=== PATIENT | female | born 1945 | race Caucasian/White ===

== ENCOUNTER 2024-02-10 09:05 | Inpatient (IN) | payer MEDICARE ==
[~2024-02-10] VITALS: Ht 170.2 cm; Wt 78.5 kg
[2024-02-10 09:10] VITALS: PULSE 89; RESP 16; TEMP 98.4
[2024-02-10 09:38] LABS: BASOPHILS % 0.6 % (0.0-1.0); EOSINOPHILS # (AUTO) 0.1 (0.0-0.4); EOSINOPHILS % 2.9 % (0.0-6.0); HEMATOCRIT 35.6 % (34.2-44.1); LYMPHOCYTES # (AUTO) 0.4 (1.0-3.2); LYMPHOCYTES % 13.4 % (18.0-39.1); MEAN CORPUSCULAR HEMOGLOBIN 30.4 pg (28-32); MEAN CORPUSCULAR HGB CONC 30.9 g/dL (31-35); MEAN CORPUSCULAR VOLUME 98.3 fL (81-99); MONOCYTES # (AUTO) 0.4 (0.2-0.8); MONOCYTES % 12.4 % (4.4-11.3); NEUTROPHILS # (AUTO) 2.2 (2.1-6.9); NEUTROPHILS % 70.7 % (38.7-80.0); PLATELET COUNT 138 x10e3/uL (140-360); RED BLOOD COUNT 3.62 x10e6/uL (3.6-5.1); RED CELL DISTRIBUTION WIDTH 14.8 % (11.7-14.4); WHITE BLOOD COUNT 3.14 x10e3/uL (4.8-10.8)
[2024-02-10 09:59] LABS: ALBUMIN/GLOBULIN RATIO 0.8 (0.8-2.0); ANION GAP 12.4 mmol/L (8-16); BILIRUBIN,TOTAL 1.3 mg/dL (0.2-1.2); CALCIUM 8.7 mg/dL (8.4-10.2); CREATININE, SERUM 0.64 mg/dL (0.57-1.11); MAGNESIUM 1.8 MG/DL (1.3-2.1); POTASSIUM 3.4 mmol/L (3.5-5.1); TOTAL PROTEIN 6.6 g/dL (6.5-8.1)
[2024-02-10 10:04] LABS: INR 1.31; PROTHROMBIN TIME 16.9 seconds (11.9-14.5); TROPONIN I 0.013 ng/mL (0-0.300)
[2024-02-10 10:05] LABS: PARTIAL THROMBOPLASTIN TIME 35.4 seconds (23.8-35.5)
[2024-02-10 10:08] LABS: B-TYPE NATRIURETIC PEPTIDE2 133.1 pg/mL (0-100)
[2024-02-10] MEDS ORDERED: ALBUMIN 25% 12.5GM 50ML 300 ML IV ONE (10:34)
[2024-02-10] MEDS ORDERED: ONDANSETRON HCL INJ 2MG/ML 2ML 2 MG/ML VIAL IV PRN (11:00)
[2024-02-10] MEDS ORDERED: METOPROLOL SUCC25 MG PO (11:33)
[2024-02-10] MEDS ORDERED: XIGDUO XR 5 MG1 EACH PO (11:33)
[2024-02-10] MEDS ORDERED: DONEPEZIL HCL10 MG PO (11:33)
[2024-02-10] MEDS ORDERED: ALENDRONATE SOD70 MG PO (11:33)
[2024-02-10] MEDS ORDERED: LOSARTAN POTASS25 MG PO (11:33)
[2024-02-10] MEDS ORDERED: LIPITOR10 MG PO (11:33)
[2024-02-10] MEDS ORDERED: ACETAMINOPHEN 325 MG TAB PO PRN (12:45)
[2024-02-10] MEDS ORDERED: ALENDRONATE SODIUM 70 MG TAB PO SCH (12:45)
[2024-02-10 14:43] VITALS: BP_SYST 117; BP_SYST 142; BP_DIAS 56; BP_DIAS 68; PULSE 81; PULSE 85; RESP 17; RESP 18; TEMP 97.9; O2SAT 100; O2SAT 98
[2024-02-10 15:22] LABS: BODY FLUID APPEARANCE CLEAR; BODY FLUID COLOR YELLOW; BODY FLUID TYPE PERITONEAL; RBC,BODY FLUID < 2000 cells/uL; WBC,BODY FLUID 121 cells/uL
[2024-02-10 16:44] LABS: LYMPHOCYTES,BODY FLUID 51 %; MONO/MACROPHG,BODY FLUID 31 %; NEUTROPHILS,BODY FLUID 5 %; OTHER CELLS,BODY FLUID 13 %; TOTAL CELLS COUNTED (DIFF) 100
[2024-02-10] MEDS ORDERED: DEXTROSE 50% SYRINGE 50 ML IV PRN (17:30)
[2024-02-10] MEDS ORDERED: ALBUTEROL/IPRATROPIUM 3 ML NEB NEB PRN (18:00)
[2024-02-10 20:00] VITALS: BP 128/57; PULSE 86; RESP 16; TEMP 98.8; O2SAT 99
[2024-02-10] MEDS: SODIUM CHLORIDE 0.9% 250ML 250 ML ONE (20:27)
[2024-02-10] MEDS: INSULIN LISPRO 100 UNIT/1 ML 3ML VIAL SQ SCH (21:00)
[2024-02-10] MEDS: DONEPEZIL HCL 5 MG TAB PO SCH (21:52)
[2024-02-10] MEDS: ATORVASTATIN 10 MG TAB PO SCH (21:52)
[2024-02-11 00:21] VITALS: BP 110/55; PULSE 80; RESP 18; TEMP 98.7; O2SAT 95
[2024-02-11 04:00] VITALS: BP 120/53; PULSE 79; RESP 16; TEMP 99.6; O2SAT 97
[2024-02-11 05:57] LABS: BASOPHILS % 0.4 % (0.0-1.0); EOSINOPHILS # (AUTO) 0.1 (0.0-0.4); HEMATOCRIT 30.9 % (34.2-44.1); HEMOGLOBIN 9.8 g/dL (12.0-16.0); LYMPHOCYTES # (AUTO) 0.5 (1.0-3.2); LYMPHOCYTES % 18.4 % (18.0-39.1); MEAN CORPUSCULAR HGB CONC 31.7 g/dL (31-35); MEAN CORPUSCULAR VOLUME 97.8 fL (81-99); MONOCYTES # (AUTO) 0.5 (0.2-0.8); MONOCYTES % 16.9 % (4.4-11.3); NEUTROPHILS # (AUTO) 1.6 (2.1-6.9); NEUTROPHILS % 59.9 % (38.7-80.0); PLATELET COUNT 112 x10e3/uL (140-360); RED BLOOD COUNT 3.16 x10e6/uL (3.6-5.1); RED CELL DISTRIBUTION WIDTH 14.6 % (11.7-14.4); WHITE BLOOD COUNT 2.72 x10e3/uL (4.8-10.8)
[2024-02-11 06:26] LABS: ALBUMIN 2.9 g/dL (3.5-5.0); ALBUMIN/GLOBULIN RATIO 1.3 (0.8-2.0); ALKALINE PHOSPHATASE 45 IU/L (40-150); ANION GAP 8.4 mmol/L (8-16); BILIRUBIN,TOTAL 1.3 mg/dL (0.2-1.2); BLOOD UREA NITROGEN 10 mg/dL (7-26); BUN/CREATININE RATIO 18 (6-25); CALCIUM 8.5 mg/dL (8.4-10.2); CARBON DIOXIDE 27 mmol/L (22-29); CHLORIDE 109 mmol/L (98-107); CREATININE, SERUM 0.57 mg/dL (0.57-1.11); EST GLOMERULAR FILTRATION RATE 92 ML/MIN (>=60); GLUCOSE 137 mg/dL (74-118); SODIUM 141 mmol/L (136-145); TOTAL PROTEIN 5.1 g/dL (6.5-8.1)
[2024-02-11 06:31] LABS: POTASSIUM 3.4 mmol/L (3.5-5.1)
[2024-02-11 06:32] LABS: ALANINE AMINOTRANSFERASE < 6 IU/L (0-55)
[2024-02-11 08:36] VITALS: BP 121/57; PULSE 82; RESP 17; TEMP 98.6; O2SAT 97
[2024-02-11] MEDS: FAMOTIDINE 20 MG TAB PO SCH (09:44)
[2024-02-11] MEDS: METOPROLOL SUCCINATE 25 MG TAB XL PO SCH (09:45)
[2024-02-11 09:50] VITALS: BP 121/57; PULSE 82; RESP 17; TEMP 98.6; O2SAT 97
[2024-02-11 12:41] VITALS: BP 115/56; PULSE 78; RESP 17; TEMP 98; O2SAT 95
[2024-02-11] MEDS ORDERED: ONDANSETRON HCL 4 MG ORAL DISINTEGRATING TAB PO PRN (14:30)
[2024-02-11 15:31] VITALS: PULSE 79; RESP 18; O2SAT 96
== END 2024-02-11 16:39 | disposition home or self-care (01) | DRG 433 ==
LOC: ER 09:12 → ERHOLD 10:52 → MED/SURG3 14:06
PROVIDERS: ADMIT Internal Medicine; ATTEND Internal Medicine
PROC: 0W9G3ZZ Drainage of Peritoneal Cavity, Percutaneous Approach (ICD-10-PCS; principal; 2024-02-10)
DX: K74.60 Unspecified cirrhosis of liver (principal); R18.8 Other ascites; B19.20 Unspecified viral hepatitis C without hepatic coma; G30.9 Alzheimer's disease, unspecified; F02.80 Dementia in other diseases classified elsewhere, unspecified severity, without behavioral disturbance, psychotic disturbance, mood disturbance, and anxiety; I10 Essential (primary) hypertension; I25.10 Atherosclerotic heart disease of native coronary artery without angina pectoris; E11.9 Type 2 diabetes mellitus without complications; K21.9 Gastro-esophageal reflux disease without esophagitis; J45.909 Unspecified asthma, uncomplicated; M19.90 Unspecified osteoarthritis, unspecified site; Z79.84 Long term (current) use of oral hypoglycemic drugs; Z95.1 Presence of aortocoronary bypass graft; Z90.710 Acquired absence of both cervix and uterus; Z88.5 Allergy status to narcotic agent; Z88.1 Allergy status to other antibiotic agents; Z88.8 Allergy status to other drugs, medicaments and biological substances
CPT/HCPCS: 36415; 49083; 70450; 71045; 74018; 74470; 80053; 82040; 82140; 82550; 82948; 83735; 83880; 84157; 84484; 85025; 85610; 85730; 86850; 86900; 87070; 87205; 88112; 88305; 89051; 93005; 94799; 99284; J0696; J7050

== ENCOUNTER → 2024-03-06 | Outpatient (REF) | payer MEDICARE ==
[~2024-03-06] MED LIST: ALBUMIN 25% 12.5GM 50ML 100 ML IV ONE; ALDACTONE25 MG PO; ALENDRONATE SOD70 MG PO; DONEPEZIL HCL10 MG PO; DULOXETINE HCL30 MG PO; LASIX40 MG PO; LIPITOR10 MG PO; LOSARTAN POTASS25 MG PO; METOPROLOL SUCC25 MG PO; XIGDUO XR 5 MG1 EACH PO
[2024-03-06 14:47] LABS: INR 1.21; PROTHROMBIN TIME 15.9 seconds (11.9-14.5)
== END ==
LOC: US 14:09
PROVIDERS: ATTEND Internal Medicine Gastroenterology
DX: R18.8 Other ascites (principal); K74.60 Unspecified cirrhosis of liver
CPT/HCPCS: 36415; 49083; 85049; 85610; 85730; C1729

== ENCOUNTER → 2024-03-20 | Outpatient (REF) | payer MEDICARE ==
[~2024-03-20] MED LIST changes: -ALBUMIN 25% 12.5GM 50ML 100 ML IV ONE
== END ==
LOC: US 12:11
PROVIDERS: ATTEND Nurse Practitioner
DX: R18.8 Other ascites (principal); K74.69 Other cirrhosis of liver
CPT/HCPCS: 49083; C1729

== ENCOUNTER → 2024-04-03 | Outpatient (REF) | payer MEDICARE | LOC: US 13:31 | PROVIDERS: ATTEND Nurse Practitioner | DX: R18.8 Other ascites (principal); K74.69 Other cirrhosis of liver | CPT/HCPCS: 76705 ==

== ENCOUNTER → 2024-05-02 | Outpatient (REF) | payer MEDICARE ==
[2024-05-02 13:11] LABS: BASOPHILS % 0.3 % (0.0-1.0); EOSINOPHILS # (AUTO) 0.2 (0.0-0.4); EOSINOPHILS % 4.5 % (0.0-6.0); HEMATOCRIT 38.2 % (34.2-44.1); HEMOGLOBIN 11.8 g/dL (12.0-16.0); LYMPHOCYTES # (AUTO) 0.6 (1.0-3.2); LYMPHOCYTES % 18.8 % (18.0-39.1); MEAN CORPUSCULAR HEMOGLOBIN 29.9 pg (28-32); MEAN CORPUSCULAR HGB CONC 30.9 g/dL (31-35); MONOCYTES # (AUTO) 0.5 (0.2-0.8); MONOCYTES % 15.8 % (4.4-11.3); NEUTROPHILS % 60.6 % (38.7-80.0); PLATELET COUNT 125 x10e3/uL (140-360); RED BLOOD COUNT 3.94 x10e6/uL (3.6-5.1); WHITE BLOOD COUNT 3.36 x10e3/uL (4.8-10.8)
[2024-05-02 13:28] LABS: INR 1.21
[2024-05-02 13:29] LABS: PARTIAL THROMBOPLASTIN TIME 31.5 seconds (23.8-35.5)
== END ==
LOC: US 13:00
PROVIDERS: ATTEND Nurse Practitioner
DX: R18.8 Other ascites (principal); K74.69 Other cirrhosis of liver
CPT/HCPCS: 36415; 76705; 85025; 85610; 85730

== ENCOUNTER → 2024-06-13 | Outpatient (REF) | payer MEDICARE | LOC: US 11:57 | PROVIDERS: ATTEND Nurse Practitioner | DX: R18.8 Other ascites (principal); K74.69 Other cirrhosis of liver | CPT/HCPCS: 49083; C1729 ==

== ENCOUNTER → 2024-07-26 | Outpatient (REF) | payer MEDICARE ==
[~2024-07-26] MED LIST changes: +ALBUMIN 25% 12.5GM 50ML 150 ML IV ONE
[2024-07-26 10:48] LABS: BASOPHILS % 0.5 % (0.0-1.0); EOSINOPHILS # (AUTO) 0.1 (0.0-0.4); EOSINOPHILS % 1.3 % (0.0-6.0); HEMATOCRIT 33.9 % (34.2-44.1); HEMOGLOBIN 11.2 g/dL (12.0-16.0); LYMPHOCYTES # (AUTO) 0.5 (1.0-3.2); LYMPHOCYTES % 11.3 % (18.0-39.1); MEAN CORPUSCULAR HEMOGLOBIN 31.5 pg (28-32); MEAN CORPUSCULAR VOLUME 95.2 fL (81-99); MONOCYTES # (AUTO) 0.6 (0.2-0.8); MONOCYTES % 14.5 % (4.4-11.3); NEUTROPHILS # (AUTO) 2.9 (2.1-6.9); NEUTROPHILS % 72.1 % (38.7-80.0); PLATELET COUNT 121 x10e3/uL (140-360); RED BLOOD COUNT 3.56 x10e6/uL (3.6-5.1); RED CELL DISTRIBUTION WIDTH 15.6 % (11.7-14.4)
[2024-07-26 11:05] LABS: INR 1.42; PROTHROMBIN TIME 18.1 seconds (11.9-14.5)
[2024-07-26 11:06] LABS: PARTIAL THROMBOPLASTIN TIME 32.6 seconds (23.8-35.5)
== END ==
LOC: US 09:13
PROVIDERS: ATTEND Nurse Practitioner
DX: R18.8 Other ascites (principal); K74.69 Other cirrhosis of liver
CPT/HCPCS: 36415; 49083; 85025; 85610; 85730

== ENCOUNTER → 2024-08-14 | Outpatient (REF) | payer MEDICARE ==
[~2024-08-14] MED LIST changes: -ALBUMIN 25% 12.5GM 50ML 150 ML IV ONE; +ALBUMIN 25% 12.5GM 50ML 200 ML IV ONE
== END ==
LOC: US 12:09
PROVIDERS: ATTEND Nurse Practitioner
DX: R18.8 Other ascites (principal); K74.69 Other cirrhosis of liver
CPT/HCPCS: 49083; C1729

== ENCOUNTER → 2024-09-11 | Outpatient (REF) | payer MEDICARE ==
[2024-09-11 11:56] LABS: BASOPHILS % 0.5 % (0.0-1.0); EOSINOPHILS # (AUTO) 0.1 (0.0-0.4); EOSINOPHILS % 1.8 % (0.0-6.0); HEMATOCRIT 35.5 % (34.2-44.1); HEMOGLOBIN 11.7 g/dL (12.0-16.0); LYMPHOCYTES # (AUTO) 0.4 (1.0-3.2); LYMPHOCYTES % 10.3 % (18.0-39.1); MEAN CORPUSCULAR HEMOGLOBIN 32.3 pg (28-32); MEAN CORPUSCULAR VOLUME 98.1 fL (81-99); MONOCYTES # (AUTO) 0.6 (0.2-0.8); MONOCYTES % 16.2 % (4.4-11.3); NEUTROPHILS # (AUTO) 2.8 (2.1-6.9); NEUTROPHILS % 70.9 % (38.7-80.0); PLATELET COUNT 147 x10e3/uL (140-360); RED BLOOD COUNT 3.62 x10e6/uL (3.6-5.1); RED CELL DISTRIBUTION WIDTH 14.6 % (11.7-14.4); WHITE BLOOD COUNT 3.89 x10e3/uL (4.8-10.8)
[2024-09-11 12:09] LABS: INR 1.23; PARTIAL THROMBOPLASTIN TIME 28.8 seconds (23.8-35.5); PROTHROMBIN TIME 16.2 seconds (11.9-14.5)
== END ==
LOC: US 11:22
PROVIDERS: ATTEND Nurse Practitioner
DX: R18.8 Other ascites (principal); K74.69 Other cirrhosis of liver
CPT/HCPCS: 36415; 49083; 85025; 85610; 85730

== ENCOUNTER → 2024-09-25 | Outpatient (REF) | payer MEDICARE | LOC: US 11:30 | PROVIDERS: ATTEND Nurse Practitioner | DX: R18.8 Other ascites (principal); K74.69 Other cirrhosis of liver | CPT/HCPCS: 49083 ==

== ENCOUNTER → 2024-10-09 | Outpatient (REF) | payer MEDICARE ==
[~2024-10-09] MED LIST changes: +ALBUMIN 25% 12.5GM 50ML 150 ML IV ONE; -ALBUMIN 25% 12.5GM 50ML 200 ML IV ONE
== END ==
LOC: US 09:01
PROVIDERS: ATTEND Nurse Practitioner
DX: R18.8 Other ascites (principal); K74.69 Other cirrhosis of liver
CPT/HCPCS: 49083

== ENCOUNTER → 2024-11-06 | Outpatient (REF) | payer MEDICARE ==
[~2024-11-06] MED LIST changes: -ALBUMIN 25% 12.5GM 50ML 150 ML IV ONE; +ALBUMIN 25% 12.5GM 50ML 200 ML IV ONE
[2024-11-06 12:42] LABS: BASOPHILS % 0.5 % (0.0-1.0); EOSINOPHILS # (AUTO) 0.1 (0.0-0.4); EOSINOPHILS % 1.6 % (0.0-6.0); HEMATOCRIT 39.3 % (34.2-44.1); HEMOGLOBIN 12.9 g/dL (12.0-16.0); LYMPHOCYTES # (AUTO) 0.4 (1.0-3.2); LYMPHOCYTES % 9.7 % (18.0-39.1); MEAN CORPUSCULAR HEMOGLOBIN 32.8 pg (28-32); MEAN CORPUSCULAR HGB CONC 32.8 g/dL (31-35); MONOCYTES # (AUTO) 0.5 (0.2-0.8); MONOCYTES % 10.6 % (4.4-11.3); NEUTROPHILS # (AUTO) 3.4 (2.1-6.9); NEUTROPHILS % 77.1 % (38.7-80.0); PLATELET COUNT 141 x10e3/uL (140-360); RED BLOOD COUNT 3.93 x10e6/uL (3.6-5.1); RED CELL DISTRIBUTION WIDTH 15.1 % (11.7-14.4); WHITE BLOOD COUNT 4.44 x10e3/uL (4.8-10.8)
[2024-11-06 13:16] LABS: INR 1.23; PARTIAL THROMBOPLASTIN TIME 34.8 seconds (23.8-35.5); PROTHROMBIN TIME 16.6 seconds (11.9-14.5)
== END ==
LOC: US 11:47
PROVIDERS: ATTEND Nurse Practitioner
DX: R18.8 Other ascites (principal); K74.69 Other cirrhosis of liver
CPT/HCPCS: 36415; 49083; 85025; 85610; 85730

== ENCOUNTER → 2024-11-30 | Outpatient (REF) | payer MEDICARE ==
[~2024-11-30] MED LIST changes: +ALBUMIN 25% 12.5GM 50ML 100 ML IV ONE; +ALBUMIN 25% 12.5GM 50ML 150 ML IV ONE; -ALBUMIN 25% 12.5GM 50ML 200 ML IV ONE; +ALBUMIN 25% 12.5GM 50ML 50 ML IV ONE
== END ==
LOC: US 11:57
PROVIDERS: ATTEND Nurse Practitioner
DX: R18.8 Other ascites (principal); K74.69 Other cirrhosis of liver
CPT/HCPCS: 49083

== ENCOUNTER → 2024-12-18 | Outpatient (REF) | payer MEDICARE ==
[~2024-12-18] MED LIST changes: -ALBUMIN 25% 12.5GM 50ML 100 ML IV ONE; -ALBUMIN 25% 12.5GM 50ML 150 ML IV ONE; +ALBUMIN 25% 12.5GM 50ML 300 ML IV ONE; -ALBUMIN 25% 12.5GM 50ML 50 ML IV ONE
[2024-12-18 14:35] LABS: BASOPHILS % 0.4 % (0.0-1.0); EOSINOPHILS # (AUTO) 0.1 (0.0-0.4); EOSINOPHILS % 2.1 % (0.0-6.0); HEMATOCRIT 37.8 % (34.2-44.1); HEMOGLOBIN 12.5 g/dL (12.0-16.0); LYMPHOCYTES # (AUTO) 0.6 (1.0-3.2); LYMPHOCYTES % 13.3 % (18.0-39.1); MEAN CORPUSCULAR HEMOGLOBIN 32.6 pg (28-32); MEAN CORPUSCULAR HGB CONC 33.1 g/dL (31-35); MEAN CORPUSCULAR VOLUME 98.7 fL (81-99); MONOCYTES # (AUTO) 0.6 (0.2-0.8); MONOCYTES % 12.4 % (4.4-11.3); NEUTROPHILS # (AUTO) 3.4 (2.1-6.9); NEUTROPHILS % 71.6 % (38.7-80.0); PLATELET COUNT 183 x10e3/uL (140-360); RED BLOOD COUNT 3.83 x10e6/uL (3.6-5.1); RED CELL DISTRIBUTION WIDTH 14.6 % (11.7-14.4); WHITE BLOOD COUNT 4.75 x10e3/uL (4.8-10.8)
[2024-12-18 14:54] LABS: INR 1.14; PARTIAL THROMBOPLASTIN TIME 31.6 seconds (23.8-35.5); PROTHROMBIN TIME 15.6 seconds (11.9-14.5)
[2024-12-18 15:00] LABS: ALBUMIN 2.8 g/dL (3.5-5.0); ALBUMIN/GLOBULIN RATIO 0.7 (0.8-2.0); BILIRUBIN,TOTAL 1.7 mg/dL (0.2-1.2); CALCIUM 8.8 mg/dL (8.4-10.2); CREATININE, SERUM 0.84 mg/dL (0.57-1.11); TOTAL PROTEIN 6.8 g/dL (6.5-8.1)
== END ==
LOC: US 14:08
PROVIDERS: ATTEND Nurse Practitioner
DX: R18.8 Other ascites (principal); K74.69 Other cirrhosis of liver
CPT/HCPCS: 36415; 49083; 80053; 85025; 85610; 85730

== ENCOUNTER → 2025-01-15 | Outpatient (REF) | payer MEDICARE ==
[~2025-01-15] MED LIST changes: +ALBUMIN 25% 12.5GM 50ML 150 ML IV ONE; -ALBUMIN 25% 12.5GM 50ML 300 ML IV ONE
[2025-01-15 09:34] LABS: BASOPHILS % 0.7 % (0.0-1.0); EOSINOPHILS % 1.9 % (0.0-6.0); LYMPHOCYTES % 14.9 % (18.0-39.1); MONOCYTES % 14.4 % (4.4-11.3); NEUTROPHILS % 67.9 % (38.7-80.0); RED CELL DISTRIBUTION WIDTH 13.6 % (11.7-14.4)
[2025-01-15 09:58] LABS: INR 1.05
== END ==
LOC: US 09:10
PROVIDERS: ATTEND Nurse Practitioner
DX: R18.8 Other ascites (principal); K74.69 Other cirrhosis of liver
CPT/HCPCS: 36415; 49083; 85025; 85610; 85730

== ENCOUNTER 2025-01-18 18:27 | Emergency (ER) | payer MEDICARE ==
[~2025-01-18] VITALS: Ht 170.2 cm; Wt 78.5 kg
[~2025-01-18 18:27] MED LIST changes: -ALBUMIN 25% 12.5GM 50ML 150 ML IV ONE
[2025-01-18] MEDS: SODIUM CHLORIDE 0.9% 1000ML 1,000 ML IV STA (19:15)
[2025-01-18 19:20] LABS: BASOPHILS % 0.3 % (0.0-1.0); EOSINOPHILS % 0.1 % (0.0-6.0); LYMPHOCYTES % 2.8 % (18.0-39.1); MONOCYTES % 9.4 % (4.4-11.3); NEUTROPHILS % 86.7 % (38.7-80.0); RED CELL DISTRIBUTION WIDTH 14.0 % (11.7-14.4)
[2025-01-18 19:34] LABS: EST GLOMERULAR FILTRATION RATE 82.0 ML/MIN (>=60)
[2025-01-18 19:36] VITALS: PULSE 83; RESP 23; TEMP 98.1
[2025-01-18 20:58] VITALS: BP 113/62; PULSE 87; RESP 23; TEMP 98.3; O2SAT 97
== END 2025-01-18 21:15 | disposition home or self-care (01) ==
LOC: ER 18:32
DX: R55 Syncope and collapse (principal); W18.39XA Other fall on same level, initial encounter; Y92.89 Other specified places as the place of occurrence of the external cause; I10 Essential (primary) hypertension; E11.65 Type 2 diabetes mellitus with hyperglycemia; K76.9 Liver disease, unspecified; I25.10 Atherosclerotic heart disease of native coronary artery without angina pectoris; K21.9 Gastro-esophageal reflux disease without esophagitis; M19.09 Primary osteoarthritis, other specified site; F32.A Depression, unspecified; Z95.1 Presence of aortocoronary bypass graft
CPT/HCPCS: 36415; 70450; 71045; 80053; 80320; 82140; 82550; 83880; 84484; 85025; 93005; 99284; J7030

== ENCOUNTER 2025-01-25 10:31 | Inpatient (IN) | payer MEDICARE ==
[~2025-01-25] VITALS: Ht 170.2 cm; Wt 78.5 kg
[2025-01-25] VITALS (9 sets, daily range): BP systolic 112–122; BP diastolic 61–93; PULSE 68–86; RESP 16–18; TEMP 36.6; O2SAT 95–98
[2025-01-25] MEDS: ONDANSETRON HCL INJ 2MG/ML 2ML 2 MG/ML VIAL IV PRN (18:30)
[2025-01-25] MEDS: Morphine 4mg INJECTION 4 MG/ML INJ IV ONE (18:31)
[2025-01-25] MEDS: DIPHENHYDRAMINE HCL INJ 50 MG/ML VIAL IV ONE (19:18)
[2025-01-25] MEDS: HYDROMORPHONE 1MG/1ML INJ IV STA (19:57)
[2025-01-25] MEDS: Morphine 4mg INJECTION 4 MG/ML INJ IV PRN (23:15)
[2025-01-26] VITALS (8 sets, daily range): BP systolic 108–135; BP diastolic 53–87; PULSE 67–85; RESP 17–18; TEMP 97.7–98.2; O2SAT 94–99
[2025-01-26] MEDS ORDERED: HYDRALAZINE HCL 20 MG/ML VIAL IV PRN (00:45)
[2025-01-26] MEDS ORDERED: SIMETHICONE 80 MG CHEW PO PRN (00:45)
[2025-01-26] MEDS ORDERED: ACETAMINOPHEN 325 MG TAB PO PRN (00:45)
[2025-01-26] MEDS ORDERED: ALBUTEROL/IPRATROPIUM 3 ML NEB NEB PRN (00:45)
[2025-01-26] MEDS ORDERED: POTASSIUM CHLORIDE 20 MEQ TAB CR PO PRN (00:45)
[2025-01-26] MEDS ORDERED: DOCUSATE SODIUM 100 MG CAP PO PRN (00:45)
[2025-01-26] MEDS ORDERED: DEXTROSE 50% SYRINGE 50 ML IV PRN (00:45)
[2025-01-26] MEDS ORDERED: BENZONATATE 100 MG CAP PO PRN (00:45)
[2025-01-26] MEDS ORDERED: LIDOCAINE 4% PATCH TP PRN (00:45)
[2025-01-26] MEDS: DEXTROSE 5%/0.9% SOD CHL 1,000 ML IV SCH (04:08)
[2025-01-26 06:53] LABS: BASOPHILS % 0.6 % (0.0-1.0); EOSINOPHILS % 3.6 % (0.0-6.0); LYMPHOCYTES % 10.5 % (18.0-39.1); MONOCYTES % 16.9 % (4.4-11.3); NEUTROPHILS % 68.0 % (38.7-80.0); RED CELL DISTRIBUTION WIDTH 14.7 % (11.7-14.4)
[2025-01-26 07:36] LABS: EST GLOMERULAR FILTRATION RATE 80.0 ML/MIN (>=60)
[2025-01-26] MEDS: DULOXETINE HCL 30 MG DELAYED RELEASE PO SCH (10:24)
[2025-01-26] MEDS: PANTOPRAZOLE SOD 40 MG TABEC PO SCH (10:24)
[2025-01-26] MEDS: METOPROLOL SUCCINATE 25 MG TAB XL PO SCH (10:24)
[2025-01-26] MEDS: MULTIVITAMINS- 12 INJECTION 10 ML, FOLIC ACID MDV 1 MG, THIAMINE HCL INJ 100 MG in SODI... IV SCH (14:17)
[2025-01-26] MEDS: SODIUM CHLORIDE 0.9% 1000ML 1,000 ML IV PRN (14:17)
[2025-01-26] MEDS: ENOXAPARIN SOD INJ 40 MG/0.4 ML SYR SC SCH (17:00)
[2025-01-26] MEDS: ATORVASTATIN 10 MG TAB PO SCH (20:40)
[2025-01-26] MEDS: DONEPEZIL HCL 5 MG TAB PO SCH (20:40)
[2025-01-27] VITALS (7 sets, daily range): BP systolic 106–134; BP diastolic 41–81; PULSE 59–74; RESP 17–20; TEMP 97.6–98.2; O2SAT 94–98
[2025-01-27 05:47] LABS: BASOPHILS % 0.5 % (0.0-1.0); EOSINOPHILS % 4.1 % (0.0-6.0); LYMPHOCYTES % 13.2 % (18.0-39.1); MONOCYTES % 17.8 % (4.4-11.3); NEUTROPHILS % 64.2 % (38.7-80.0); RED CELL DISTRIBUTION WIDTH 14.6 % (11.7-14.4)
[2025-01-27 06:02] LABS: % IRON SATURATION 25.0 % (15-50); EST GLOMERULAR FILTRATION RATE 82.0 ML/MIN (>=60)
[2025-01-28] VITALS (9 sets, daily range): BP systolic 100–126; BP diastolic 50–63; PULSE 59–72; RESP 18–20; TEMP 97.8–98.4; O2SAT 95–99
[2025-01-28 09:41] LABS: BASOPHILS % 0.7 % (0.0-1.0); EOSINOPHILS % 3.8 % (0.0-6.0); LYMPHOCYTES % 12.9 % (18.0-39.1); MONOCYTES % 15.0 % (4.4-11.3); NEUTROPHILS % 67.1 % (38.7-80.0); RED CELL DISTRIBUTION WIDTH 14.7 % (11.7-14.4)
[2025-01-28 10:16] LABS: EST GLOMERULAR FILTRATION RATE 80.0 ML/MIN (>=60)
[2025-01-28] MEDS: MELATONIN 5 MG TABLET PO PRN (21:30)
[2025-01-28] MEDS: DIPHENHYDRAMINE HCL 25 MG CAP PO PRN (21:30)
[2025-01-29] VITALS (10 sets, daily range): BP systolic 97–124; BP diastolic 48–60; PULSE 58–69; RESP 17–19; TEMP 97.5–98.2; O2SAT 95–98
[2025-01-29 08:51] LABS: INR 1.13
[2025-01-29] MEDS: FUROSEMIDE 40 MG TAB PO SCH (09:02)
[2025-01-29] MEDS: RIFAXIMIN 550 MG TABLET PO SCH ×2 (09:03→18:12)
[2025-01-29] MEDS: SPIRONOLACTONE 25 MG TAB PO SCH (09:04)
[2025-01-29] MEDS: HYDROCODONE/APAP 5MG-325MG TAB PO PRN (10:22)
[2025-01-29] MEDS ORDERED: ALBUMIN 25% 12.5GM 50ML 200 ML IV ONE (13:46)
[2025-01-30] VITALS (8 sets, daily range): BP systolic 100–122; BP diastolic 51–88; PULSE 58–74; RESP 16–19; TEMP 97.6–97.9; O2SAT 95–100
[2025-01-31] VITALS (9 sets, daily range): BP systolic 99–122; BP diastolic 51–68; PULSE 57–78; RESP 16–20; TEMP 97.1–98.3; O2SAT 92–100
[2025-01-31 08:23] LABS: BASOPHILS % 0.5 % (0.0-1.0); EOSINOPHILS % 2.0 % (0.0-6.0); LYMPHOCYTES % 14.3 % (18.0-39.1); MONOCYTES % 12.3 % (4.4-11.3); NEUTROPHILS % 70.7 % (38.7-80.0); RED CELL DISTRIBUTION WIDTH 14.7 % (11.7-14.4)
[2025-01-31 08:50] LABS: EST GLOMERULAR FILTRATION RATE 89.0 ML/MIN (>=60)
[2025-02-01 01:20] VITALS: BP 118/57; PULSE 67; RESP 16; TEMP 97.9; O2SAT 96
[2025-02-01 06:30] VITALS: PULSE 87; RESP 21; O2SAT 96
[2025-02-01 06:56] VITALS: BP 109/56; PULSE 58; RESP 16; TEMP 97.8; O2SAT 94
[2025-02-01 08:07] VITALS: BP 106/62; PULSE 62; RESP 17; TEMP 98.3; O2SAT 96
[2025-02-01 09:30] VITALS: BP 106/62; PULSE 62; RESP 17; TEMP 98.3; O2SAT 96
[2025-02-01 11:46] VITALS: BP 115/58; PULSE 62; RESP 17; TEMP 98.2; O2SAT 98
== END 2025-02-01 22:13 | DRG 536 ==
LOC: ER 10:38 → ERHOLD 17:09 → MED/SURG3 20:51
PROVIDERS: ADMIT Internal Medicine; ATTEND Internal Medicine
PROC: 0W9G3ZZ Drainage of Peritoneal Cavity, Percutaneous Approach (ICD-10-PCS; principal; 2025-01-29)
DX: S32.810A Multiple fractures of pelvis with stable disruption of pelvic ring, initial encounter for closed fracture (principal); R18.8 Other ascites; F02.84 Dementia in other diseases classified elsewhere, unspecified severity, with anxiety; R64 Cachexia; S32.492A Other specified fracture of left acetabulum, initial encounter for closed fracture; W18.39XA Other fall on same level, initial encounter; Y92.009 Unspecified place in unspecified non-institutional (private) residence as the place of occurrence of the external cause; K74.60 Unspecified cirrhosis of liver; K72.10 Chronic hepatic failure without coma; B19.20 Unspecified viral hepatitis C without hepatic coma; M16.0 Bilateral primary osteoarthritis of hip; M85.88 Other specified disorders of bone density and structure, other site; I10 Essential (primary) hypertension; I25.10 Atherosclerotic heart disease of native coronary artery without angina pectoris; Z95.1 Presence of aortocoronary bypass graft; E11.9 Type 2 diabetes mellitus without complications; Z79.84 Long term (current) use of oral hypoglycemic drugs; G30.9 Alzheimer's disease, unspecified; K21.9 Gastro-esophageal reflux disease without esophagitis; Z68.27 Body mass index [BMI] 27.0-27.9, adult; Z74.01 Bed confinement status; Z60.2 Problems related to living alone; Z79.899 Other long term (current) drug therapy
CPT/HCPCS: 36415; 49083; 72020; 72040; 72170; 72192; 74470; 80048; 82140; 82607; 82746; 82948; 83540; 84443; 84466; 85025; 85610; 94799; 99252; 99284; J1200; J1650; J2270; J2405; J2470; J3411; J7030; J7042

== ENCOUNTER → 2025-02-22 | Outpatient (REF) | payer MEDICARE ==
[~2025-02-22] MED LIST changes: +ALBUMIN 25% 12.5GM 50ML 200 ML IV ONE
[2025-02-22 13:43] LABS: BASOPHILS % 0.6 % (0.0-1.0); EOSINOPHILS % 3.2 % (0.0-6.0); LYMPHOCYTES % 9.4 % (18.0-39.1); MONOCYTES % 13.0 % (4.4-11.3); NEUTROPHILS % 73.6 % (38.7-80.0); RED CELL DISTRIBUTION WIDTH 13.8 % (11.7-14.4)
[2025-02-22 13:59] LABS: INR 1.23
[2025-02-22 14:07] LABS: EST GLOMERULAR FILTRATION RATE 80.0 ML/MIN (>=60)
== END ==
LOC: US 13:49
PROVIDERS: ATTEND Nurse Practitioner
DX: R18.8 Other ascites (principal); K74.69 Other cirrhosis of liver
CPT/HCPCS: 36415; 49083; 80053; 85025; 85610; 85730

== ENCOUNTER → 2025-03-12 | Outpatient (REF) | payer MEDICARE ==
[~2025-03-12] MED LIST changes: -ALBUMIN 25% 12.5GM 50ML 200 ML IV ONE; +ALBUMIN 25% 12.5GM 50ML 300 ML IV ONE
[2025-03-12 09:36] LABS: BASOPHILS % 0.4 % (0.0-1.0); EOSINOPHILS % 2.4 % (0.0-6.0); LYMPHOCYTES % 12.3 % (18.0-39.1); MONOCYTES % 12.7 % (4.4-11.3); NEUTROPHILS % 72.0 % (38.7-80.0); RED CELL DISTRIBUTION WIDTH 13.3 % (11.7-14.4)
[2025-03-12 10:09] LABS: INR 1.31
== END ==
LOC: US 09:19
PROVIDERS: ATTEND Nurse Practitioner
DX: R18.8 Other ascites (principal); K74.69 Other cirrhosis of liver
CPT/HCPCS: 36415; 49083; 85025; 85610; 85730; C1729

== ENCOUNTER → 2025-03-26 | Outpatient (REF) | payer MEDICARE | LOC: US 09:13 | PROVIDERS: ATTEND Nurse Practitioner | DX: R18.8 Other ascites (principal); K74.69 Other cirrhosis of liver | CPT/HCPCS: 49083 ==

== ENCOUNTER → 2025-04-09 | Outpatient (REF) | payer MEDICARE ==
[~2025-04-09] MED LIST changes: +ALBUMIN 25% 12.5GM 50ML 100 ML IV ONE; +ALBUMIN 25% 12.5GM 50ML 200 ML IV ONE; -ALBUMIN 25% 12.5GM 50ML 300 ML IV ONE
[2025-04-09 09:21] LABS: BASOPHILS % 0.5 % (0.0-1.0); EOSINOPHILS % 2.8 % (0.0-6.0); LYMPHOCYTES % 15.0 % (18.0-39.1); MONOCYTES % 15.0 % (4.4-11.3); NEUTROPHILS % 66.4 % (38.7-80.0); RED CELL DISTRIBUTION WIDTH 12.8 % (11.7-14.4)
[2025-04-09 09:53] LABS: INR 1.15
== END ==
LOC: US 09:00
PROVIDERS: ATTEND Nurse Practitioner
DX: R18.8 Other ascites (principal); K74.69 Other cirrhosis of liver
CPT/HCPCS: 36415; 49083; 85025; 85610; 85730